=== PATIENT | female | born 1995 | race Caucasian/White ===

== ENCOUNTER 2018-07-29 13:40 | Emergency (ER) | payer OTHER ==
[~2018-07-29] VITALS: Ht 177.8 cm; Wt 100.0 kg
[2018-07-29] MEDS ORDERED: DEXAMETHASONE 4 MG TABLET PO ONE (15:00)
[2018-07-29 15:27] VITALS: BP 130/74
== END 2018-07-29 15:42 | disposition home or self-care (01) ==
LOC: EMS 13:40
DX: J03.90 Acute tonsillitis, unspecified (principal); R03.0 Elevated blood-pressure reading, without diagnosis of hypertension; Z88.1 Allergy status to other antibiotic agents
CPT/HCPCS: 81025; 87430; 99283; J8540

== ENCOUNTER 2019-10-05 10:05 | Emergency (ER) | payer OTHER ==
[~2019-10-05] VITALS: Ht 177.8 cm; Wt 86.4 kg
[2019-10-05 11:59] VITALS: BP 125/79
== END 2019-10-05 12:01 | disposition home or self-care (01) ==
LOC: EMS 10:07
DX: J02.9 Acute pharyngitis, unspecified (principal); Z88.0 Allergy status to penicillin

== ENCOUNTER 2021-10-17 15:33 | Emergency (ER) | payer OTHER ==
[~2021-10-17] VITALS: Ht 177.8 cm; Wt 81.8 kg
[2021-10-17] MEDS ORDERED: PROPARACAINE HCL 0.5% 15 ML OPHTHALMIC SOLUTION OD ONE (16:30)
[2021-10-17] MEDS ORDERED: FLUORESCEIN SODIUM 1 MG STRIP ONE (16:35)
[2021-10-17 16:36] VITALS: BP 138/71
[2021-10-17] MEDS ORDERED: OFLO35OS OD (16:56)
== END 2021-10-17 17:25 | disposition home or self-care (01) ==
LOC: EMS 15:34
DX: T15.11XA Foreign body in conjunctival sac, right eye, initial encounter (principal); Z98.890 Other specified postprocedural states; Z88.1 Allergy status to other antibiotic agents; X58.XXXA Exposure to other specified factors, initial encounter; Y93.89 Activity, other specified; Y92.89 Other specified places as the place of occurrence of the external cause; Y99.8 Other external cause status
CPT/HCPCS: 99284; J9035; Z7502; Z7610

== ENCOUNTER 2022-10-26 18:59 | Emergency (ER) | payer OTHER ==
[~2022-10-26 18:59] MED LIST: OFLO35OS OD
== END 2022-10-26 20:09 | disposition left against medical advice (07) ==
LOC: EMS 19:12
DX: Z53.21 Procedure and treatment not carried out due to patient leaving prior to being seen by health care provider (principal)